=== PATIENT | male | born 1990 ===

== ENCOUNTER 2023-01-08 15:06 | Emergency (ER) | payer OTHER ==
[2023-01-08 15:38] VITALS: BP 127/67; PULSE 65; RESP 20; TEMP 98.2; BMI 29.1
[2023-01-08] MEDS ORDERED: ALBUTEROL SO4 2.5/IPRATROPIUM 0.5 INH SOL 3 ML VIAL.NEB. NEB ONE ×2 (16:20→16:26)
[2023-01-08 16:46] LABS: BASO % 0.9 % (0-2.0); EOS % 2.3 % (0-4.5); HEMATOCRIT 44.1 % (35.4-49); HEMOGLOBIN 14.9 GM/dL (11.7-16.9); LYMPH % 28.1 % (8-40); MCHC 33.8 g/dl (32.0-35.9); MEAN CELL VOLUME 85.7 fl (80-96); MEAN PLT VOLUME 7.3 fl (7.5-11.1); MONO % 7.2 % (3.8-10.2); NEUT % 61.5 % (42.8-82.8); PLATELET COUNT 426 10^3/uL (134-434); RBC 5.15 M/mm3 (4.00-5.60); WHITE BLOOD COUNT 7.3 K/mm3 (4.0-10.0)
[2023-01-08 16:56] LABS: INR 1.01 (0.83-1.09); PROTHROMBIN TIME (PATIENT) 11.7 SEC (9.7-13.0)
[2023-01-08 16:59] LABS: ACTIVATED PTT 28.6 SECONDS (25.2-36.5)
[2023-01-08 17:05] LABS: POTASSIUM 4.3 mmol/L (3.5-5.1)
[2023-01-08 17:07] LABS: ALBUMIN 4.1 g/dl (3.4-5.0); CALCIUM 9.4 mg/dL (8.5-10.1)
[2023-01-08 17:09] LABS: CREATININE 1.1 mg/dL (0.55-1.3)
[2023-01-08 17:12] LABS: BILIRUBIN,TOTAL 0.3 mg/dL (0.2-1); TOT PROT 7.3 g/dl (6.4-8.2)
== END 2023-01-08 18:44 | disposition home or self-care (01) ==
LOC: JER 15:06
PROC: 3E0F7GC Introduction of Other Therapeutic Substance into Respiratory Tract, Via Natural or Artificial Opening (ICD-10-PCS; principal; 2023-01-08)
DX: R06.02 Shortness of breath (principal); R07.9 Chest pain, unspecified
CPT/HCPCS: 36415; 71046-TC-FY; 80053; 84484; 85025; 85610; 85730; 86850; 86900; 86901; 93005; 93010; 99285-25